=== PATIENT | male | born 1960 | race Caucasian/White ===

== ENCOUNTER 2019-06-10 14:43 | Emergency (ER) | payer OTHER ==
--- NOTE | 2019-06-10 15:05 | ED Physician Documentation ---
Abdominal Pain - HISTORIAN Historian: patient - HPI Stated Complaint: abd pain Chief Complaint: Abdominal Pain Additonal Information: Patient presents to ED with a 1 month history of generalized abdominal pain. Patient states he thinks it is his gall bladder and diverticulitis. He reports being told last month he needed his gall bladder removed due to gall stones, however, he did not do this. He also states he had diverticulitis a year ago, right after he had his appendix removed. He was treated with antibiotics and morphine for 5 days. He denies nausea/vomiting, diarrehea, blood in stools, dark stools, fever, chills, night sweats. He states he is traveling to [place]. 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 Onset: days ago (2) Duration: waxing, waning Timing: still present Context: denies: out of country travel, bad food Severity: moderate Quality: pain, sharp, stabbing Associated Symptoms: denies: fever, chills, nausea, vomiting, diarrhea, bloody stools, grossly bloody stools Exacerbated by: nothing Relieved by: nothing Further Comments: no - ROS CONST: no problems GI/: none CVS/RESP: none EYES/ENT: none MS/SKIN/LYMPH: none NEURO/PSYCH: none - SOCIAL HX Smoking History: cigarettes, greater than 1 pack/day Alcohol Use: none Drug Use: none - FAMILY HX Family History: no significant history - PAST HX Past History: gall stones, other (PE on Eliquis) Ischemic Bowel Risk Factors: none Other History: none, hypertension Surgeries/Procedures: appendectomy Home Medications: Ambulatory Orders Medication Instructions Recorded Apixaban [Eliquis] 5 mg PO BID 06/10/19 Lisinopril 20 mg PO DAILY 06/10/19 amLODIPine BESYLATE [Norvasc] 10 mg PO DAILY 06/10/19 Allergies/Adverse Reactions: Allergies Allergy/AdvReac Type Severity Reaction Status Date / Time No Known Allergies Allergy Verified 06/10/19 14:56 - VITAL SIGNS Vital Signs: Vital Signs Temp Pulse Resp BP Pulse Ox 97.5 F L 78 19 131/72 98 06/10/19 14:51 06/10/19 14:51 06/10/19 14:51 06/10/19 14:51 06/10/19 14:51 - REVIEWED ASSESSMENTS Nursing Assessment Reviewed: Yes Vitals Reviewed: Yes Progress - Progress Progress: 1540 Discussed elevated creatinine and BUN with patient. He states he was told he has a mass on his kidney and was supposed to have it checked out but has not done it yet. 163 Radiologist called report, free air in abdomen, recommends surgical consult [id number] Discussed with casting house worker at [facility]. Awaiting call back. 1650 1 liter normal saline complete. 1 liter LR started. ED Results Lab/Radiology - Lab Results Lab Results: Lab Results 06/10/19 06/10/19 06/10/19 15:05 15:05 15:05 WBC RBC Hgb Hct MCV MCH MCHC RDW Plt Count Neut # (Auto) Lymph # (Auto) [place] # (Auto) Eos # (Auto) Baso # (Auto) Seg Neutrophils % Band Neutrophils % Lymphocytes % Monocytes % Metamyelocytes % Toxic Vacuolation Plt Morphology Comment [place] Cells RBC Morph Comment Sodium 137 mmol/L mmol/L (137-145) Potassium 3.6 mmol/L mmol/L (3.5-5.1) Chloride 99 mmol/L mmol/L (98-107) Carbon Dioxide 20 mmol/L L mmol/L (22-30) Anion Gap 21.6 BUN 80 mg/dL H mg/dL (9-20) Creatinine 4.63 mg/dL H mg/dL (0.66-1.25) Estimated Creat Clear 29 Est GFR ( Amer) 17 L (60 - ) Est GFR (Non-Af Amer) 14 L (60 - ) Glucose 143 mg/dL H mg/dL (74-106) Lactate 2.3 U/L H U/L (0.7-2.1) Calcium 8.7 mg/dL mg/dL (8.4-10.2) Total Bilirubin 2.2 mg/dL H mg/dL (0.2-1.3) AST 33 U/L U/L (15-46) ALT 28 U/L U/L (4-50) Alkaline Phosphatase 228 U/L H U/L (38-126) Total Protein 6.9 g/dL g/dL (6.3-8.2) Albumin 3.5 g/dL g/dL (3.5-5.0) Lipase 21 U/L L U/L (23-300) Urine Color Yellow (YELLOW) Urine Appearance Cloudy (CLEAR) Urine pH 5.0 (5.0 - 8.0) Ur Specific [place] 1.025 (1.010-1.030) Urine Protein 3+ mg/dL H mg/dL (NEGATIVE) Urine Ketones Negative mg/dL mg/dL (NEGATIVE) Urine Occult Blood Trace-lysed H (NEGATIVE) Urine Nitrite Negative (NEGATIVE) Urine Bilirubin 1+ H (NEGATIVE) Urine Urobilinogen 1.0 Eu Eu (0.2-1.0) Ur Leukocyte Esterase Negative (NEGATIVE) Urine Glucose Negative mg/dL mg/dL (NEGATIVE) 06/10/19 15:05 WBC 25.20 K/ul H K/ul (4.00-12.00) RBC 4.27 M/ul M/ul (3.90-5.20) Hgb 13.3 g/dL g/dL (12.0-18.0) Hct 38.5 % % (37.0-53.0) MCV 90.0 fl fl (80.0-100.0) MCH 31.1 pg pg (28.0-34.0) MCHC 34.5 g/dL g/dL (30.0-36.0) RDW 12.2 % % (11.3-14.3) Plt Count 326 K/mm3 K/mm3 (130-400) Neut # (Auto) 19.0 # k/uL H # k/uL (1.4-7.7) Lymph # (Auto) 1.3 # k/uL # k/uL (0.6-4.0) [place] # (Auto) 4.4 # k/uL H # k/uL (0.0-0.9) Eos # (Auto) 0.3 # k/uL # k/uL (0.0-0.6) Baso # (Auto) 0.3 # k/uL # k/uL (0.0-0.5) Seg Neutrophils % 68 % % (39-79) Band Neutrophils % 11 % % (0-12) Lymphocytes % 7 % L % (16-50) Monocytes % 14 % H % (0-11) Metamyelocytes % 1 % H % (0-0) Toxic Vacuolation Present Plt Morphology Comment Normal (NORMAL) [place] Cells 2+ H (NEGATIVE) RBC Morph Comment Abnormal H (NORMAL) Sodium Potassium Chloride Carbon Dioxide Anion Gap BUN Creatinine Estimated Creat Clear Est GFR ( Amer) Est GFR (Non-Af Amer) Glucose Lactate Calcium Total Bilirubin AST ALT Alkaline Phosphatase Total Protein Albumin Lipase Urine Color Urine Appearance Urine pH Ur Specific [place] Urine Protein Urine Ketones Urine Occult Blood Urine Nitrite Urine Bilirubin Urine Urobilinogen Ur Leukocyte Esterase Urine Glucose UA - glucose neg, bilirubin +1, Ketone neg, sp gravity 1.025, pH 5.0, Protein +3, nitrate neg, leukocyte neg - Radiology Radiology Impressions: Report Submission Date: Jun 10, 2019 4:40:42 PM [employer] Patient Study Name: CHIQUIS VU Date: Jun 10, 2019 3:55:53 PM [employer] Modality Type: CT\SR Gender: M Description: CT ABD PELVIS W/O CO : 60 Institution: [facility] Physician: IGNACIO CALIXTO CT abdomen and pelvis without contrast History: Generalized abdominal pain for 2 days Technique: Helically acquired images were obtained from hemidiaphragms to the pelvic floor without IV or oral contrast. Findings: There is a small hiatal hernia. There is a small right pleural effusion. There is free air adjacent to the liver at the right upper quadrant. There is a small amount of free fluid adjacent to the liver and tracking into the right pericolic gutter. Extensive locules of free air are present at the right lower quadrant. No IV or oral contrast was administered. It is difficult to determine the exact site of this fairly extensive free air, possibly the cecum or possibly the distal small bowel. The patient does have a history of appendectomy. There is mild generalized fullness of the left adrenal gland. The right adrenal gland, spleen and pancreas are unremarkable. There is a single tiny gallstone. There are 3 cysts of the right kidney. These lesions all demonstrate fluid Hounsfield units and the largest of these measures 3.6 cm. However, there is an exophytic lesion at the upper pole of the left kidney which is not measuring fluid in Hounsfield units. This lesion measures 1.5 cm. There is aortoiliac atherosclerosis mildly without aneurysm. Scattered diverticula of the descending and sigmoid colon are present. The bladder, seminal vesicles and prostate gland are unremarkable. Phleboliths are present in the pelvis. No acute osseous abnormalities are noted. Anterior marginal osteophytes are present at multiple levels of the low thoracic spine. Impression: Small right pleural effusion. There is free air within the abdomen, adjacent to the liver but most pronounced at the right lower quadrant. The exact source of this fairly extensive free air is uncertain, perhaps the cecum or perhaps the distal small bowel. Emergent surgical consultation would be indicated. Tiny gallstone. Mild fullness of the left adrenal gland, likely adenomatous change. Three cysts of the right kidney. Indeterminate lesion upper pole left kidney. When the patient is no longer in an acute status, either dedicated renal CT or preferentially renal MRI would be recommended for further characterization. These findings were discussed with Dr. Robert Gao in the emergency room on June 10, 2019 at 1635 central standard time Electronically signed on Jun 10, 2019 4:40:42 PM [employer] by: Sonja Madera - Orders Orders: ED Orders Category Date Time Status Place IV Lock 1T Care 06/10/19 15:[address] ABD & PELVIS W/O CON Stat Exams 06/10/19 Completed CBC/PLATELET/DIFF Routine Lab 06/10/19 15:05 Completed CMP [CMP] Routine Lab 06/10/19 15:05 Completed LACTATE Stat Lab 06/10/19 15:05 Completed LIPASE Stat Lab 06/10/19 15:05 Completed UA MACRO DIP ONLY Routine Lab 06/10/19 15:05 Completed 0.9 % Sodium Chloride [Normal Saline] 1,000 ml Med 06/10/19 15:34 Discontinued IV Q1H HYDROmorphone HCL/PF [Dilaudid] Med 06/10/19 16:42 Discontinued 1 mg IVP NOW ONE Lactated Ringers [Ringers, Lactated] 1,000 ml Med 06/10/19 17:08 Ordered IV ONCE Piperacillin Sodium/Tazobactam [Zosyn] 3.375 gm Med 06/10/19 16:42 Active 0.9 % Sodium Chloride [Normal Saline] 100 ml IV NOW Abdominal Pain Physical Exam - Physical Exam General Appearance: no acute distress, alert EENT: ABIMAEL NECK: normal inspection, supple RESPIRATORY: no resp distress, chest non-tender, breath sounds normal CVS: reg rate & rhythm, heart sounds normal ABDOMEN: soft, tenderness (generalized throughout) BACK: normal inspection SKIN: warm/dry EXTREMITIES: non-tender, no edema NEURO: oriented X3, mood/affect nml Vital Signs: Vital Signs Temp Pulse Resp BP Pulse Ox 97.5 F L 78 19 131/72 98 06/10/19 14:51 06/10/19 14:51 06/10/19 14:51 06/10/19 14:51 06/10/19 14:51 Discharge Clincal Impression: Intra-abdominal free air of unknown etiology Referrals: Primary Doctor,No [Primary Care Provider] - 2 Days Condition: Stable Disposition: 02 XFER SHT-TRM HOSP Decision to Admit: NO Date of Decison to Admit: 06/10/19 Decision Time: 17:09
[2019-06-10] MEDS ORDERED: 0.9 % SODIUM CHLORIDE 1,000 ML IV ONE (15:34)
[2019-06-10 15:55] LABS: SEGMENTED NEUTROPHILS % 68 % (39-79); TOXIC VACUOLATION PRESENT
[2019-06-10 16:36] LABS: APPEARANCE,URINE CLOUDY (CLEAR); COLOR,URINE YELLOW (YELLOW); OCCULT BLOOD,URINE TRACE-LYSED (NEGATIVE)
[2019-06-10] MEDS ORDERED: PIPERACILLIN SODIUM/TAZOBACTAM 3.375 GM in 0.9 % SODIUM CHLORIDE 100 ML IV ONE (16:42)
[2019-06-10] MEDS ORDERED: HYDROmorphone HCL/PF 1 MG/ML VIAL IVP ONE (16:42)
--- NOTE | 2019-06-10 16:45 | Diagnostic Imaging Report ---
PATIENT MR#: [id number] PATIENT PATIENT NAME: CHIQUIS VU DATE OF : 1960 REFERRING PHYSICIAN: Maryse Gao EXAM DATE: 06/10/2019 ACCESSION NUMBER: [id number] EXAM DESCRIPTION: CT ABD PELVIS W/O CO CT abdomen and pelvis without contrast History: Generalized abdominal pain for 2 days Technique: Helically acquired images were obtained from hemidiaphragms to the pelvic floor without I V or oral contrast. Findings: There is a small hiatal hernia. There is a small right pleural effusion. There is free a ir adjacent to the liver at the right upper quadrant. There is a small amount of free fluid adjacent to the liver and t racking into the right pericolic gutter. Extensive locules of free air are present at the right lower quadrant. No I V or oral contrast was administered. It is difficult to determine the exact site of this fairly extensive free air, pos sibly the cecum or possibly the distal small bowel. The patient does have a history of appendectomy. There is mild generalized fullness of the left adrenal gland. The right adrenal gland, spleen and pa ncreas are unremarkable. There is a single tiny gallstone. There are 3 cysts of the right kidney. These lesio ns all demonstrate fluid Hounsfield units and the largest of these measures 3.6 cm. However, there is an exophytic lesi on at the upper pole of the left kidney which is not measuring fluid in Hounsfield units. This lesion measures 1.5 c m. There is aortoiliac atherosclerosis mildly without aneurysm. Scattered diverticula of the descending and sigmoid colon are present. The bladder, seminal vesicles and prostate gland are unremarkable. Phleboliths are pre sent in the pelvis. No acute osseous abnormalities are noted. Anterior marginal osteophytes are present at multiple leve ls of the low thoracic spine. Impression: Small right pleural effusion. There is free air within the abdomen, adjacent to the liver but most pronounced at the right lower q uadrant. The exact source of this fairly extensive free air is uncertain, perhaps the cecum or perhaps the distal small bowel. Emergent surgical consultation would be indicated. Tiny gallstone. Mild fullness of the left adrenal gland, likely adenomatous change. Three cysts of the right kidney. Indeterminate lesion upper pole left kidney. When the patient is n o longer in an acute status, either dedicated renal CT or preferentially renal MRI would be recommended for further characterization. These findings were discussed with Dr. Robert Gao in the emergency room on June 10, 2019 at 1635 central standard time Read by: Dr. Sonja Madera Transcribed by: Transcribed Date: Electronically signed by: Dr. Sonja Madera Date signed: 06/10/2019 4:44:16 PM
[2019-06-10] MEDS ORDERED: LACTATED RINGERS 1,000 ML IV ONE ×2 (17:08→18:31)
[2019-06-10 17:29] VITALS: BP 119/91
== END 2019-06-10 17:29 | disposition short-term general hospital (02) ==
LOC: ED 14:43
DX: K66.8 Other specified disorders of peritoneum (principal)
CPT/HCPCS: 74176; 80053; 81002; 83605; 83690; 85025; 96361; 96365; 96374; 96375; 96376; 99283; 99284; 99285; J1170; J2543; J7030; J7120; S1016